=== PATIENT | female | born 2000 | race Caucasian/White ===

== ENCOUNTER 2025-01-12 03:35 | Emergency (ER) | payer SELFPAY ==
[~2025-01-12] VITALS: Ht 160 cm; Wt 96.3 kg
[2025-01-12 06:10] VITALS: BP 126/80; TEMP 99.3; O2SAT 99
== END 2025-01-12 06:47 | disposition left against medical advice (07) ==
LOC: M ED 03:35
DX: Z53.21 Procedure and treatment not carried out due to patient leaving prior to being seen by health care provider (principal)